=== PATIENT | female | born 1945 | race Caucasian/White ===

== ENCOUNTER → 2016-10-03 | Outpatient (CLI) | payer MEDICARE, BC ==
[~2016-10-03] MED LIST: ACETAMINOPHEN650 M1 PO; ACTOS PO; ALLOPURINOL300 MG PO; CALCITRIOL0.25 MCG PO; CARTIA; COREG12.5 MG PO; DICLOFENAC; DILTIAZEM 24HR240 M1 PO; DILTIAZEM ER240 M3 PO; ELIQUIS2.5 MG PO; ENALAPRIL PO; FEOSOL PO; FERROUS SU325 ( 65 ) PO; GLYBURIDE MICRON3 MG PO; GLYNASE; GLYNASE PO; HYDRALAZINE HC100 MG PO; HYDRALAZINE HCL25 MG PO; LANTUS100 UNITS/ SUBQ; LASIX; LASIX PO; LASIX20 MG PO; LASIX80 MG PO; LEVAQUIN250 MG PO; METFORMIN; PRAVASTATIN SOD80 MG PO; VASOTEC
[2016-10-03 13:05] LABS: ALBUMIN SERUM 3.8 g/dL (3.5-5.0); BILIRUBIN,TOTAL 0.6 mg/dL (0.2-2.0); BUN/CREATININE RATIO 28.18; CALCIUM SERUM 9.4 mg/dL (8.4-10.2); CREATININE SERUM 2.2 mg/dL (0.6-1.4); GLOM FILT RATE Estimated 21.7 mL/min (>60); PHOSPHOROUS 4.3 mg/dL (2.5-4.6); POTASSIUM 3.8 mmol/L (3.5-5.1); URIC ACID 5.6 mg/dL (2.6-7.2)
[2016-10-04 17:51] LABS: CALCIUM (PTHINTACT) 9.5 mg/dL (8.6-10.4)
== END | disposition home or self-care (01) ==
LOC: CLAB 11:57
PROVIDERS: Internal Medicine Nephrology
DX: N18.4 Chronic kidney disease, stage 4 (severe) (principal); N25.81 Secondary hyperparathyroidism of renal origin
CPT/HCPCS: 36415; 80053; 82310; 83970; 84100; 84550

== ENCOUNTER → 2017-01-24 | Outpatient (CLI) | payer MEDICARE, BC ==
[2017-01-24 13:54] LABS: HEMATOCRIT 31.4 % (35.0-45.0); HEMOGLOBIN 10.3 gm/dL (12.0-16.0); MEAN CELL VOLUME 98.2 FL (83-96); MEAN CORPUSCULAR HEMOGLOBIN 32.3 PG (28-34); MEAN CORPUSCULAR HGB CONC 32.9 g/dL (30-36); MEAN PLATELET VOLUME 7.4 FL (6.5-11.5); RED BLOOD COUNT 3.2 X10e (3.90-5.30); RED CELL DISTRIBUTION WIDTH 16.3 % (11.0-15.5); WHITE BLOOD COUNT 10.5 X10e3 (4.0-10.5)
[2017-01-24 14:43] LABS: ALBUMIN SERUM 3.2 g/dL (3.5-5.0); BILIRUBIN,TOTAL 0.3 mg/dL (0.2-2.0); BUN/CREATININE RATIO 15.9; CALCIUM SERUM 9.9 mg/dL (8.4-10.2); CREATININE SERUM 2.2 mg/dL (0.6-1.4); GLOM FILT RATE Estimated 21.7 mL/min (>60); PHOSPHOROUS 4.5 mg/dL (2.5-4.6); POTASSIUM 3.9 mmol/L (3.5-5.1); PROTEIN TOTAL SERUM 6.3 g/dL (6.0-8.3); URIC ACID 4.6 mg/dL (2.6-7.2)
[2017-01-25 16:40] LABS: CALCIUM (PTHINTACT) 10.4 mg/dL (8.6-10.4)
== END | disposition home or self-care (01) ==
LOC: CLAB 13:23
PROVIDERS: Internal Medicine Nephrology
DX: N18.4 Chronic kidney disease, stage 4 (severe) (principal); D63.1 Anemia in chronic kidney disease; N25.81 Secondary hyperparathyroidism of renal origin
CPT/HCPCS: 36415; 80053; 82310; 83970; 84100; 84550; 85027